=== PATIENT | male | born 1995 | race Caucasian/White ===

== ENCOUNTER 2016-08-14 22:23 | Emergency (ER) | payer MEDICAID ==
[~2016-08-14] VITALS: Ht 188 cm; Wt 104.3 kg
--- NOTE | 2016-08-15 00:13 | NUR ---
Pt to room c/o shortness of breath getting worse over last three days. Resp even and unlabored. Speaking full sentences, no resp distress noted at this time. Pt seen by MD. Crooks at bedside.
--- NOTE | 2016-08-15 00:46 | NUR ---
pt stable for discharge per MD. Pt given ACI. Pt verbalized understanding of dc instructions. Pt ambulated out of er with steady gait.
[2016-08-15 00:47] VITALS: BP 165/91
== END 2016-08-15 00:50 | disposition home or self-care (01) ==
LOC: ER 22:26
DX: J06.9 Acute upper respiratory infection, unspecified (principal); F17.200 Nicotine dependence, unspecified, uncomplicated
CPT/HCPCS: 71010; A4663

== ENCOUNTER 2018-06-16 22:36 | Emergency (ER) | payer BC, MEDICAID ==
[~2018-06-16] VITALS: Ht 188 cm; Wt 106.6 kg
[~2018-06-16 22:36] MED LIST: GUAI5SYR4 PO; LEVO500T2 PO
--- NOTE | 2018-06-16 23:16 | NUR ---
Patient discharged to home in stable conditon. Written and verbal after care instructions given. Patient verbalizes understanding of instructions. WALKED OUT OF ER WITH NO DISTRESS NOTED
== END 2018-06-16 23:21 | disposition home or self-care (01) ==
LOC: ER 22:36
DX: G89.29 Other chronic pain (principal); M54.5 Low back pain; F17.200 Nicotine dependence, unspecified, uncomplicated; Z79.2 Long term (current) use of antibiotics; Z79.899 Other long term (current) drug therapy
CPT/HCPCS: A4663